=== PATIENT | male | born 1985 | race Hispanic/Latino ===

== ENCOUNTER 2017-09-07 18:11 | Emergency (ER) | payer BC ==
[~2017-09-07] VITALS: Ht 177.8 cm; Wt 86.2 kg
[2017-09-07] MEDS ORDERED: BROMFED DM COU118 ML PO (20:02)
== END 2017-09-07 20:25 | disposition home or self-care (01) ==
LOC: FSED 18:11
DX: R50.9 Fever, unspecified (principal); R05 Cough; J00 Acute nasopharyngitis [common cold]; B34.9 Viral infection, unspecified
CPT/HCPCS: 99282

== ENCOUNTER 2017-09-28 08:47 | Emergency (ER) | payer BC ==
[~2017-09-28 08:47] MED LIST: BROMFED DM COU118 ML PO
== END 2017-09-28 09:40 | disposition home or self-care (01) ==
LOC: FSED 08:47
DX: M25.511 Pain in right shoulder (principal); M75.51 Bursitis of right shoulder
CPT/HCPCS: 99282